=== PATIENT | female | born 1960 | race Caucasian/White ===

== ENCOUNTER → 2017-01-06 16:18 | Outpatient (CLI) | payer BC ==
[2015-12-06 10:20] VITALS: BMI 33.9
[~2017-01-06 16:18] MED LIST: ADVIL200 MG PO; MIRAPEX0.125 MG PO; NORCO 10/325 TA1 TA1 PO; PHENERGAN25 M1 PO; PREVACID15 MG PO; PROTONIX40 MG PO; VITAMIN D2000 UNIT PO; ZANTAC150 MG PO
== END | disposition home or self-care (01) ==
LOC: D.MAMMO 15:45
DX: Z12.31 Encounter for screening mammogram for malignant neoplasm of breast (principal)

== ENCOUNTER → 2017-10-20 07:16 | Outpatient (CLI) | payer BC ==
[2015-12-06 10:20] VITALS: BMI 33.9
== END | disposition home or self-care (01) ==
LOC: D.RAD 07:16
DX: R10.9 Unspecified abdominal pain (principal)

== ENCOUNTER → 2017-11-15 07:55 | Outpatient (CLI) | payer BC ==
[2015-12-06 10:20] VITALS: BMI 33.9
== END | disposition home or self-care (01) ==
LOC: D.RAD 07:55
DX: K59.09 Other constipation (principal); R10.32 Left lower quadrant pain

== ENCOUNTER → 2018-01-25 19:58 | Outpatient (CLI) | payer BC ==
[2015-12-06 10:20] VITALS: BMI 33.9
[~2018-01-25 19:58] MED LIST changes: +CRESTOR10 MG PO; +ZOFRAN4 MG PO
== END | disposition home or self-care (01) ==
LOC: D.MAMMO 16:00
DX: Z12.31 Encounter for screening mammogram for malignant neoplasm of breast (principal)

== ENCOUNTER 2018-02-22 09:15 | Inpatient (IN) | payer BC ==
[2018-02-21 08:43] LABS: HEMATOCRIT 37.7 % (36.0-48.0); HEMOGLOBIN 11.9 g/dL (12-16); MCH 27.7 pg (26.0-34.0); MCHC 31.6 g/dL (31.0-37.0); MCV 87.9 fL (80.0-100.0); MEAN PLATELET VOLUME 10.3 fL (7.4-10.4); PLATELET COUNT 270 10x3/uL (130-400); RBC 4.29 10x6/uL (4.00-5.40); WBC 10.8 10x3/uL (4.8-10.8)
[2018-02-21 08:49] LABS: CARBON DIOXIDE 30.1 mmol/L (21.0-32.0); POTASSIUM - SERUM 4.1 mmol/L (3.5-5.1)
[2018-02-21 10:00] LABS: EOSINOPHILS 1 % (0-7); LYMPHOCYTES 49 % (15-50); MONOCYTES 13 % (2-11); NEUTROPHILS 37 % (40-80); PLATELET ESTIMATE NORMAL
[2018-02-22] VITALS (9 sets, daily range): BP systolic 84–132; BP diastolic 54–81; BMI 33.6
[~2018-02-22] VITALS: Ht 175.3 cm; Wt 103.0 kg
--- NOTE | ~2018-02-22 | OP ---
PATIENT NAME: LEO GILLILAND MEDICAL RECORD: [id number] :56 LOCATION:[id number] ADMISSION DATE:02/22/18 SURGEON: GARETH HUTCHINSON MD DATE OF OPERATION: 02/22/2018 PREOPERATIVE DIAGNOSES: 1. Recurrent diverticulitis. 2. GERD. POSTOPERATIVE DIAGNOSES: 1. Recurrent diverticulitis. 2. GERD. PROCEDURE: Hand-assisted laparoscopic sigmoid colectomy. SURGEON: Gareth Hutchinson MD REPORT OF PROCEDURE: The patient's abdomen was prepped and draped in sterile fashion. A cutdown was made in the suprapubic region and electrocautery was used to dissect down through the subcutaneous tissues to the fascia. The fascia was opened up, we bluntly entered the abdominal cavity. I cleared out some loose adhesions to the anterior abdominal wall and then inserted a GelPort with a 5-mm trocar within it. Through this, I was able to insufflate the abdomen and placed a 12-mm trocar in the right lower quadrant and a 5-mm trocar in the right lateral abdomen. The patient had some adhesions in the pelvis of the colon and appendix epiploica of the sigmoid colon and proximal rectum to the anterior pelvic wall. These were taken down with blunt dissection and occasional sharp dissection. Eventually, we were able to free all these up to mobilize the proximal rectum and distal sigmoid colon. I then took down the white line of Toldt of the sigmoid colon and extended this superiorly up the descending colon. Eventually, we were able to mobilize the colon medially and at this point, I eviscerated the colon through the wound protector and transected the distal sigmoid colon at the rectosigmoid junction using a 55 blue load Endo-DEREK stapler. The mesentery was taken down with 2 fires of a white load Endo-DEREK stapler. We then made another small window in the mesentery and took down the remaining mesocolon using sequential clamp and tie technique with 3-0 silk ties. The proximal sigmoid colon was transected using electrocautery and this portion of the bowel was sent off for permanent specimen. In total, approximately 10-12 inches of colon was removed and there was no sign of any acute inflammatory changes. The colon was prepped with a 2-0 Prolene in a pursestring fashion on its distal aspect and a 29 EEA anvil was inserted. The pursestring was tied down tightly around this. We then inserted the multiple anal dilators followed by the 29 EEA stapler through the anus and into the proximal rectum. An end-to-end anastomosis was performed under direct visualization. At the conclusion of this, we had 2 distinct intact rings of tissue present in the stapler and with checking the staple line under water. There was no sign of any leak with instilling air through the rectum. I then oversewed the staple line using Lemberted 3-0 silks. At this point, we irrigated out the abdomen one last time and assured there was no sign of any bleeding. At this point, the ports and insufflation were then removed. The patient did have some adhesions of the small bowel in the posterior aspect of the pelvis and due to the fact the patient has been having some chronic pain, I decided to go ahead and released these adhesions to allow the small bowel to a more freely moved this was done with sharp dissection and there was only a scant amount of adhesions visible. At the conclusion of this, we reapproximated the fascia using running #1 loop OPERATIVE REPORT [id number] LEO GILLILAND PDS times 2. The subcutaneous tissues were irrigated out and reapproximated with interrupted 3-0 Vicryls and the skin was closed with samantha. COMPLICATIONS: None. CONDITION: Stable. ANESTHESIA: General endotracheal. BLOOD LOSS: Minimal. TRANSINT:[id number] Voice Confirmation ID: [id number] DOCUMENT ID: [id number] GARETH HUTCHINSON MD at 1335 CC: ANIKA OLIVAS and THUY MORENO MD [id number] DICTATION DATE: 02/22/18 1401 NUCLEAR EQUIPMENT DESIGN ENGINEER: 02/22/18 1529 ADM IN [facility] [address] [id number]
--- NOTE | ~2018-02-22 | MORECARE ---
CASE MANAGEMENT DISCHARGE SUMMARY PATIENT: LEO GOMEZ UNIT: [id number] ADM DATE: 02/22/18 AGE: 58 : 56 SEX: F ROOM/BED: D.2224 AUTHOR: KULWINDERDOC PHYSICIAN: REFERRING PHYSICIAN: MECCA HUTCHINSON MD DATE OF SERVICE: 03/01/18 Discharge Plan Patient Name: LEO GOMEZ Facility: [facility]:[place] : 1960 Planned Disposition: Home Anticipated Discharge Date: 02/25/18 Discharge Date: 02/25/2018 Expected LOS: 3 Initial Reviewer: [email or web address] Initial Review Date: 02/24/2018 Generated: 03/01/18 9:51 am Comments DCP- Discharge Planning Updated by [email or web address]: Deyanira Mejia on 02/24/18 2:[address] Patient Name: LEO GOMEZ Admission Status: Elective Accout number: [id number] Admission Date: 02-22-2018 : 1960 Admission Diagnosis: Attending: MECCA HUTCHINSON Current LOS: 2 Anticipated DC Date: 02-25-2018 Planned Disposition: Home Primary Insurance: [email or web address] OUT OF STATE Discharge Planning Comments: Cm met with patient to discuss discharge planning, she is alone in the room. She states she lives with her disabled 28 year old son. States her son is able to care for himself though and can help her if needed "with little things." States her ex will take her home on discharge. I discussed availability of rehab and home health as well as DME. She states she does not have or need any DME. States her discharge plan is to return home, declines home health. States "I was prepared and did my grocery shopping prior to coming to the hospital." States she is still working and has many work friends that will help her if needed. No needs identified. CM will continue to follow and assist with discharge planning/needs. Metal Grinder: Deyanira Mejia DCPIA - Discharge Planning Initial Assessment Updated by [email or web address]: Deyanira Mejia on 02/24/18 3:29 pm * Is the patient Alert and Oriented? Yes * How many steps to enter\\exit or inside your home? 0/1 * PCP Dr Reagan Liao * Pharmacy [facility] on [address] * Preadmission Environment Home with Family * ADLs Independent * Equipment None * List name and contact numbers for known caregivers / representatives who currently or will assist patient after discharge: Satish Gomez - Ex - [phone] Jason Gomez - son * Verbal permission to speak to the caregivers and representatives has been obtained from the patient. Yes * Community resources currently utilized None * Additional services required to return to the preadmission environment? No * Can the patient safely return to the preadmission environment? Yes * Has this patient been hospitalized within the prior 30 days at any hospital? No Last DP export: 02/24/18 2:37 p Patient Name: LEO GOMEZ Page [id number] at 0852 All edits/amendments must be made on the electronic document DICTATION DATE: 03/01/18850 ARCHITECTURAL DRAFTSMAN: WALDO 03/01/1853 RPT#: [id number] DC DATE:02/25/18 STATUS: DIS IN [facility] [address] [place] [address] END OF REPORT
--- NOTE | ~2018-02-22 | MORECARE ---
CASE MANAGEMENT DISCHARGE SUMMARY PATIENT: LEO GOMEZ UNIT: [id number] ADM DATE: 02/22/18 AGE: 58 : 56 SEX: F ROOM/BED: D.2224 AUTHOR: KULWINDER,DOC PHYSICIAN: REFERRING PHYSICIAN: MECCA HUTCHINSON MD DATE OF SERVICE: 02/24/18 Discharge Plan Patient Name: LEO GOMEZ Facility: [facility]:[place] : 1960 Planned Disposition: Home Anticipated Discharge Date: 02/25/18 Discharge Date: Expected LOS: 3 Initial Reviewer: [email or web address] Initial Review Date: 02/24/2018 Generated: 02/24/18 4:37 pm Comments DCP- Discharge Planning Updated by [email or web address]: Deyanira Mejia on 02/24/18 2:[address] Patient Name: LEO GOMEZ Admission Status: Elective Accout number: [id number] Admission Date: 02-22-2018 : 1960 Admission Diagnosis: Attending: MECCA HUTCHINSON Current LOS: 2 Anticipated DC Date: 02-25-2018 Planned Disposition: Home Primary Insurance: [employer] OUT OF STATE Discharge Planning Comments: Cm met with patient to discuss discharge planning, she is alone in the room. She states she lives with her disabled 28 year old son. States her son is able to care for himself though and can help her if needed "with little things." States her ex will take her home on discharge. I discussed availability of rehab and home health as well as DME. She states she does not have or need any DME. States her discharge plan is to return home, declines home health. States "I was prepared and did my grocery shopping prior to coming to the hospital." States she is still working and has many work friends that will help her if needed. No needs identified. CM will continue to follow and assist with discharge planning/needs. Industrial Machine Operator: Deyanira Mejia DCPIA - Discharge Planning Initial Assessment Updated by [email or web address]: Deyanira Mejia on 02/24/18 3:29 pm * Is the patient Alert and Oriented? Yes * How many steps to enter\\exit or inside your home? 0/1 * PCP Dr Reagan Liao * Pharmacy [facility] on [address] * Preadmission Environment Home with Family * ADLs Independent * Equipment None * List name and contact numbers for known caregivers / representatives who currently or will assist patient after discharge: Satish Gomez - Ex - [phone] Jason Gomez - son * Verbal permission to speak to the caregivers and representatives has been obtained from the patient. Yes * Community resources currently utilized None * Additional services required to return to the preadmission environment? No * Can the patient safely return to the preadmission environment? Yes * Has this patient been hospitalized within the prior 30 days at any hospital? No Patient Name: LEO GOMEZ Page [id number] at 1537 All edits/amendments must be made on the electronic document DICTATION DATE: 02/24/181535 BOOT AND SHOE REPAIRMAN: WALDO 02/24/181535 RPT#: [id number] DC DATE: STATUS: ADM IN [facility] [address] [place] [address] END OF REPORT
[2018-02-23] VITALS (7 sets, daily range): BP systolic 104–130; BP diastolic 59–82; Ht 175.3 cm; Wt 103.0 kg
[2018-02-23 04:44] LABS: BASOPHILS 0 % (0-2); EOSINOPHILS 0 % (0-7); HEMATOCRIT 30.2 % (36.0-48.0); IMMATURE GRANULOCYTES 0.2 % (0-5); LYMPHOCYTES 12.4 % (15-50); MCH 27.6 pg (26.0-34.0); MCHC 31.1 g/dL (31.0-37.0); MCV 88.6 fL (80.0-100.0); MEAN PLATELET VOLUME 10.6 fL (7.4-10.4); MONOCYTES 7.1 % (2-11); NEUTROPHILS 80.3 % (40-80); PLATELET COUNT 252 10x3/uL (130-400); RDW 13.4 % (11.5-14.5); WBC 11.8 10x3/uL (4.8-10.8)
[2018-02-23 04:55] LABS: HEMOGLOBIN 9.4 g/dL (12-16); RBC 3.41 10x6/uL (4.00-5.40)
[2018-02-23 04:59] LABS: ANION GAP 16.5 mmol/L (8-16); CALCIUM 7.8 mg/dL (8.5-10.1); CARBON DIOXIDE 23.9 mmol/L (21.0-32.0); POTASSIUM - SERUM 4.4 mmol/L (3.5-5.1)
[2018-02-24 01:09] VITALS: BP 114/66
[2018-02-24 04:49] VITALS: BP 126/78
[2018-02-24 06:26] LABS: BASOPHILS 0.1 % (0-2); EOSINOPHILS 0.1 % (0-7); HEMATOCRIT 23.3 % (36.0-48.0); IMMATURE GRANULOCYTES 0.2 % (0-5); LYMPHOCYTES 46.6 % (15-50); MCH 27.8 pg (26.0-34.0); MCHC 30.9 g/dL (31.0-37.0); MEAN PLATELET VOLUME 10.2 fL (7.4-10.4); MONOCYTES 5.3 % (2-11); NEUTROPHILS 47.7 % (40-80); PLATELET COUNT 199 10x3/uL (130-400); RBC 2.59 10x6/uL (4.00-5.40); RDW 13.5 % (11.5-14.5); WBC 15.4 10x3/uL (4.8-10.8)
[2018-02-24 06:28] LABS: HEMOGLOBIN 7.2 g/dL (12-16)
[2018-02-24 06:36] LABS: CALCIUM 7.9 mg/dL (8.5-10.1); CARBON DIOXIDE 24.7 mmol/L (21.0-32.0); CHLORIDE - SERUM 111 mmol/L (98-107); POTASSIUM - SERUM 3.8 mmol/L (3.5-5.1); SODIUM 143 mmol/L (136-145); eGFR NON AFRICAN AMERICAN 90 mL/min (90-120)
[2018-02-24 06:38] LABS: CALC OSMOLALITY 284 mosm/kg (275-300); CREATININE - SERUM 0.7 mg/dL (0.6-1.3); GLUCOSE 84 mg/dL (74-106); UREA NITROGEN 14 mg/dL (7-18)
[2018-02-24 08:33] VITALS: BP 147/93
[2018-02-24 12:00] VITALS: BP 132/84
[2018-02-24 14:13] LABS: BASOPHILS 0.1 % (0-2); EOSINOPHILS 0.2 % (0-7); HEMATOCRIT 22.9 % (36.0-48.0); IMMATURE GRANULOCYTES 0.3 % (0-5); LYMPHOCYTES 45.8 % (15-50); MCH 27.9 pg (26.0-34.0); MCHC 32.3 g/dL (31.0-37.0); MEAN PLATELET VOLUME 10.7 fL (7.4-10.4); MONOCYTES 5.5 % (2-11); NEUTROPHILS 48.1 % (40-80); PLATELET COUNT 191 10x3/uL (130-400); RBC 2.65 10x6/uL (4.00-5.40); RDW 13.5 % (11.5-14.5)
[2018-02-24 14:19] LABS: HEMOGLOBIN 7.4 g/dL (12-16); MCV 86.4 fL (80.0-100.0)
[2018-02-24 16:20] VITALS: BP 148/90
[2018-02-24 18:46] LABS: HEMATOCRIT 22.8 % (36.0-48.0)
[2018-02-24 19:05] LABS: HEMOGLOBIN 7.2 g/dL (12-16)
[2018-02-24 20:31] VITALS: BP 136/82
[2018-02-25 00:50] VITALS: BP 130/84
[2018-02-25 04:48] LABS: BASOPHILS 0.1 % (0-2); EOSINOPHILS 1.1 % (0-7); HEMATOCRIT 21.7 % (36.0-48.0); IMMATURE GRANULOCYTES 0.2 % (0-5); LYMPHOCYTES 50.7 % (15-50); MCH 27.1 pg (26.0-34.0); MCHC 30.9 g/dL (31.0-37.0); MCV 87.9 fL (80.0-100.0); MEAN PLATELET VOLUME 10.4 fL (7.4-10.4); MONOCYTES 5.8 % (2-11); NEUTROPHILS 42.1 % (40-80); PLATELET COUNT 206 10x3/uL (130-400); RBC 2.47 10x6/uL (4.00-5.40); RDW 13.3 % (11.5-14.5)
[2018-02-25 04:49] LABS: HEMOGLOBIN 6.7 g/dL (12-16); WBC 12.1 10x3/uL (4.8-10.8)
[2018-02-25 05:03] VITALS: BP 134/78
[2018-02-25 05:06] LABS: CALC OSMOLALITY 278 mosm/kg (275-300); CALCIUM 8.2 mg/dL (8.5-10.1); CARBON DIOXIDE 28.2 mmol/L (21.0-32.0); CHLORIDE - SERUM 106 mmol/L (98-107); CREATININE - SERUM 0.7 mg/dL (0.6-1.3); GLUCOSE 92 mg/dL (74-106); POTASSIUM - SERUM 3.1 mmol/L (3.5-5.1); SODIUM 141 mmol/L (136-145); UREA NITROGEN 7 mg/dL (7-18); eGFR NON AFRICAN AMERICAN 90 mL/min (90-120)
[2018-02-25 09:03] VITALS: BP 148/90
[2018-02-25 12:33] VITALS: BP 141/94
[2018-02-25] MEDS ORDERED: NORCO-10 PO (13:49)
[2018-02-25 15:55] LABS: HEMATOCRIT 28.9 % (36.0-48.0); HEMOGLOBIN 9.5 g/dL (12-16)
[2018-02-25 16:38] VITALS: BP 178/98
== END 2018-02-25 17:21 | disposition home or self-care (01) | DRG 330 ==
LOC: D.SDCHOLD 09:15 → D.MS 09:55 → D.SDCHOLD 13:00 → D.MS 14:51
PROVIDERS: Surgery
PROC: 0DTN0ZZ Resection of Sigmoid Colon, Open Approach (ICD-10-PCS; principal; 2018-02-22 13:00)
DX: K57.32 Diverticulitis of large intestine without perforation or abscess without bleeding (principal); D62 Acute posthemorrhagic anemia; K21.9 Gastro-esophageal reflux disease without esophagitis

== ENCOUNTER → 2019-02-20 12:00 | Outpatient (CLI) | payer BC ==
[2018-02-23 12:02] VITALS: BMI 33.5
[~2019-02-20 12:00] MED LIST changes: +NORCO-10 PO
== END | disposition home or self-care (01) ==
LOC: D.MAMMO 12:00
PROVIDERS: ATTEND Family Medicine
DX: Z12.31 Encounter for screening mammogram for malignant neoplasm of breast (principal)